=== PATIENT | male | born 1985 | race Caucasian/White ===

== ENCOUNTER 2025-05-14 11:16 | Outpatient (CLI) | payer BC, MEDICAID, SELFPAY ==
--- OUTSIDE RECORDS SUMMARY | 2025-01-26 17:30 | XMS_ITS ---
Author Organization [facility] Address [address] [place] [address] Care Team Providers Care Paper Products Supervisor Name Role Phone Migration, Provider Unavailable Unavailable Allergies Allergen (clinical drug ingredient) Drug/Non Drug Allergy documented on EMR Reaction Allergy Type Onset Date Status Penicillin Unknown Drug Allergy [facility] Conversion Encounter Medications Medication SIG (Take, Route, Frequency, Duration) Notes Start Date End Date Status Lisinopril-hydroCHLOROthiazi de 20-12.5 MG Tablet 1 tab(s) orally once a day; Duration: 30 days Active Triamcinolone Acetonide 0.1 % Cream 1 leatha applied topically 3 times a day; Duration: 14 days 10/03/2019 Active Famotidine 20 MG Tablet 1 tab(s) orally 2 times a day; Duration: 30 days 07/24/2019 Active dexAMETHasone 4 MG Tablet 1 tab(s) orall y 2 times a day; Duration: 7 day(s) 10/03/2019 Active Eucrisa 2 % Ointment 1 leatha applied topic ally 2 times a day; Duration: 30 days 10/03/2019 Active Encounters Encounter Location Date Provider Diagnosis [facility] [address] [place] [address] 01/26/2025 Provider Migration Plan Of Treatment Medication Medication Name Sig Start Date Stop Date Notes Triamcinolone Acetonide 0.1 % Cream 1 leatha applied topically 3 times a day; Duration: 14 days 10/03/2019 dexAMETHasone 4 MG Tablet 1 tab(s) orall y 2 times a day; Duration: 7 day(s) 10/03/2019 Eucrisa 2 % Ointment 1 leatha applied topic ally 2 times a day; Duration: 30 days 10/03/2019 Progress Notes * GAYAkash NDOB:1985 ( 39 yo M)Acc No.[id number]:01/26/2025 Patient: Akash Stern Provider: :1985 A ge:39 Y S ex:Male Date:01/26/2025 Address:[address] [place] [address] Subjective: * Chief Complaints: * M [facility] Conversion Encounter * Medications: T akingFamotidine 20 MG Tablet 1 tab(s) orally 2 times a day Lisinopril-hydroCHLOROthiazide 20-12.5 MG Tablet 1 tab(s) orally once a day Taking Famotidine 20 MG Tablet 1 tab(s) orally 2 times a day Taking Lisinopril-hydroCHLOROthiazide 20-12.5 MG Tablet 1 tab(s) orally once a day * Allergies: P enicillin Plan: * Treatment: * Electronic signature of Prov ider Migration on 05/15/2025 at 10:01 AM EDT Sign off status: Pending * Provider: Date: 01/26/2025 Generated for Vera littlejohn/Unruly/Messi on: 05/15/2025 10:01 AM EDT
[2025-05-14 15:54] LABS: Coronavirus 19, PCR Not Detected (NotDetected); Influenza A, PCR Not Detected (NotDetected); Influenza B, PCR Not Detected (NotDetected)
--- OUTSIDE RECORDS SUMMARY | 2025-05-15 10:01 | XMS_ITS | Clinical Summary ---
Author Organization [facility] Address [address] [place] [address] Care Team Providers Care Watch Engine Operator Name Role Phone Joel Adrianshikha Zabala APRN Primary Care Provider + Allergies Active Allergy Reactions Criticality Noted Date Comments Penicillins Hives,Unknown (See Comments) 2020 Medications ZyrTEC Allergy 10 MG tablet Take 1 tablet by mouth Daily. 4 Active Omeprazole 20 MG Tablet Delayed Release DispersibleIndi cations:Excessi ve daytime sleepiness Take 1 tablet by mouth Daily. 90 tablet 5 Active vitamin D (ERGOCALCIFEROL ) 1.25 MG (81738 UT) capsule capsuleIndicati ons:Vitamin D deficiency Take 1 capsule by mouth 1 (One) Time Per Week. 5 capsule 2 5 Active albuterol sulfate HFA 108 (90 Base) MCG/ACT inhalerIndicati ons:Shortness of breath Inhale 2 puffs Every 4 (Four) Hours As Needed for Wheezing or Shortness of Air. 18 g 11 5 Active citalopram (CeleXA) 20 MG tabletIndicatio ns:Excessive daytime sleepiness TAKE 1 TABLET BY MOUTH DAILY. 90 tablet 5 Active losartan (COZAAR) 50 MG tabletIndicatio ns:Excessive daytime sleepiness TAKE 1 TABLET BY MOUTH DAILY. 90 tablet 5 Active hydroCHLOROthia zide 12.5 MG tabletIndicatio ns:Excessive daytime sleepiness TAKE 1 TABLET BY MOUTH DAILY. 90 tablet 5 Active Active Problems Problem Noted Date Diagnosed Date Other fatigue 09/17/2024 Shortness of breath 09/17/2024 Epididymal cyst 12/23/2020 Immunizations Immunization Administration Dates Next Due MMR 11/29/1996 Td (TDVAX) 11/29/1996 Tdap 02/22/2021 Family History Medical History Relation Name Comments Cancer Father Prostate cancer Father Cancer Maternal Grandfather Cancer Mother Ovarian cancer Mother Skin cancer Mother Prostate cancer Paternal Grandfather Relation Name Status Comments Father Alive Maternal Grandfather Mother Alive Paternal Grandfather Social History Tobacco Use Types Packs/Day Years Used Date Smoking Tobacco: Never Passive Smoke Exposure: Never Smokeless Tobacco: Never Tobacco Cessation:Counseling Given: No Alcohol Use Standard Drinks/Week Comments Never 0 (1 standard drink = 0.6 oz pur e alcohol) PHQ-2 Answer Date Recorded Patient Health Questionnaire-2 Score 0 08/28/2024 Sex and Gender Information Value Date Recorded Sex Assigned at Not on file Legal Sex Male 4:26 PM EDT Gender Identity Not on file Sexual Orientation Not on file Last Filed Vital Signs Vital Sign Reading Time Taken Comments Blood Pressure 124/86 09/17/2024 12:59 PM EST Pulse 88 09/17/2024 12:59 PM EST Temperature 36.4 C (97.6 F) 09/17/2024 12:59 PM EST Respiratory Rate 17 03/01/2021 9:49 AM EDT Oxygen Saturation 98% 09/17/2024 12:59 PM EST Inhaled Oxygen Concentration - - Weight 107 kg (235 lb 3.2 oz) 09/17/2024 12:59 P M EST Height 177.8 cm (5' 10 ) 09/17/2024 12:59 PM EST Body Mass Index 33.75 09/17/2024 12:59 PM EST Plan of Treatment Health Maintenance Due Date Last Done Comments ANNUAL PHYSICAL 09/19/2020 HEPATITIS C SCREENING 09/19/2020 INFLUENZA VACCINE 03/22/2025 TDAP/TD VACCINES (3 - Td or Tdap) 02/22/2031 02/22/2021, 11/29/1996 Pneumococcal Vaccine 0-49 Aged Out No longer eligible based on patient's age to complete this topic Insurance [employer] Care Teams Watch Engine Operator Relationship Specialty Start Date End Date Adrian Maldonado, DWAYNE [address] [place] [address] PCP - General Nurse Practitioner 02/05/25
--- OUTSIDE RECORDS SUMMARY | 2025-05-15 10:01 | XMS_ITS | Referral Summary ---
Author Organization [facility] ([place], [place], [place], [place]) Address [address] [place] [address] Care Team Providers Care Poultry Process Worker Name Role Phone Adrian Maldonado APRN Primary Care Provider +1- [phone] Allergies Active Allergy Reactions Criticality Noted Date Comments Penicillin Hives High 01/01/2025 Medications losartan (COZAAR) 50 MG tabletIndicatio ns:HTN (hypertension) Take 1 tablet (50 mg total) by mouth daily. 90 tablet 01/01/2025 6 Active hydroCHLOROthia zide (HYDRODIURIL) 25 MG tabletIndicatio ns:HTN (hypertension) Take 0.5 tablets (12.5 mg total) by mouth daily. 90 tablet 01/01/2025 6 Active citalopram (CeleXA) 20 MG tabletIndicatio ns:Anxiety Take 1 tablet (20 mg total) by mouth daily Look-alike /Sound-alike medication . 30 tablet 01/01/2025 6 Active omeprazole (PriLOSEC) 20 MG capsuleIndicati ons:GERD (gastroesophage al reflux disease) Take 1 capsule (20 mg total) by mouth daily. 90 capsule 01/01/2025 6 Active semaglutide, weight loss, (Wegovy) 0.25 mg/0.5 mL syringe Inject 0.5 mLs (0.25 mg total) under the skin every 7 days. 2 mL 01/16/2025 Active Social History Tobacco Use Types Packs/Day Years Used Date Smoking Tobacco: Former Cigarettes 0.5 2.4 S tarted: 01/01/2023 Smokeless Tobacco: Never Tobacco Cessation:Counseling Given: Not Answered Alcohol Use Standard Drinks/Week Comments Not Currently 0 (1 standard drink = 0.6 oz pur e alcohol) Housing Stability Vital Sign Answer Benny e Recorded In the last 12 months, was t here a time when you were not able to pay the mortgage or rent on time? No 01/01/2025 Number of Times Moved in the Last Year Not on fi le 01/01/2025 At any time in the past 12 m [facility], were you homeless or living in a m[facility] (including now)? No 01/01/2025 Family and Community Support Answer Benny e Recorded Help with Day to Day Activities Not on file 09/26/2023 Feeling Lonely or Isolated Not on file 09/26 Educational Attainment Answer Date Kb rded Speak language other than Syrian at home Not on file 09/26/2023 Want help with school or training Not on file 09/26/2023 Substance Use Answer Date Recorded Used prescription meds for non-medical reasons N ot on file 09/26/2023 Used illegal drugs past 12 months Not on file 09/26/2023 Sex and Gender Information Value Date Recorded Sex Assigned at Not on file Legal Sex Male 9:45 AM CDT Gender Identity Not on file Sexual Orientation Not on file Last Filed Vital Signs Vital Sign Reading Time Taken Comments Blood Pressure 125/79 01/01/2025 11:23 AM EDT Pulse 84 01/01/2025 11:23 AM EDT Temperature 36.6 C (97.9 F) 01/01/2025 11:23 AM EDT Respiratory Rate 16 01/01/2025 11:23 AM EDT Oxygen Saturation 95% 01/01/2025 11:23 AM EDT Inhaled Oxygen Concentration - - Weight 104.8 kg (231 lb) 01/01/2025 11:23 AM EDT Height 177.8 cm (5' 10 ) 01/01/2025 11:23 AM EDT Body Mass Index 33.15 01/01/2025 11:23 AM EDT Plan of Treatment Not on file Procedures Procedure Name Priority Date/Time Associated Diagnosis Comments LIPID PANEL Routine 01/08/2025 9:32 AM EDT Healthcare maintenance from Last 3 Months or Most Recently Relevant to Health Maintenance Results * (ABNORMAL) Lipid panel (01/08/2025 9:32 AM EDT) Cholesterol, Total 170 100 - 199 mg/dL [facility] Triglycerides 115 0 - 149 mg/dL [facility] HDL Cholesterol 28(L) >39 mg/dL [facility] VLDL Cholesterol Rudi 21 5 - 40 mg/dL [facility] LDL Calculated 121(H) 0 - 99 mg/dL [facility] Blood 01/08/2025 9:32 AM EDT 01/08/2025 Narrative [facility] - 01/09/2025 4:08 PM EDT Performed at: - [address] [id number] Analyst Microbiology Lab: Paul Jackson PhD, Phone: [phone] Adrian Maldonado PROCUREMENT PROFESSIONAL LOGISTICS LAB BLOOD ORDERABLES Final Result Performing Organization Address City/State/[facility] Co de Phone Number [facility] from Last 3 Months or Most Recently Relevant to Health Maintenance [facility] Care Teams Poultry Process Worker Relationship Specialty Start Date End Date Adrian Maldonado, PROCUREMENT PROFESSIONAL LOGISTICS [address] [place] [address] PCP - General Family Medicine 01/01/25
--- OUTSIDE RECORDS SUMMARY | 2025-05-15 10:01 | XMS_ITS | Patient Health Record ---
Author Organization [facility] Address [address] [place] [address] Care Team Providers Care Mri Assistant Name Role Phone Migration, Provider Unavailable Unavailable Allergies Allergen (clinical drug ingredient) Drug/Non Drug Allergy documented on EMR Reaction Allergy Type Onset Date Status Penicillin Unknown Drug Allergy Active Reason For Referral No Information Medications Medication SIG (Take, Route, Frequency, Duration) [...] a day; Duration: 30 days 10/03/2019 Active Social History Social History Social History Social Info Question Answer Notes Tobacco Use Current smoking status: Never smoked Additional Details Category Social Info Options Details Social History Occupational exposure no Travel outside [place] no Alcohol no Sexually active yes Drug use no Exercise yes Home smoke detector use: yes Caffeine no Marital Status Children 3 Pets no Taoism yes Problems Problem Type SNOMED Code ICD Code Onset Dates Problem Status W/U Status Risk Notes Problem Essential hypertension (65121272) Essential (primary) hypertension (I10) Active confirmed Problem Gastro-esophagea l reflux disease without esophagitis (371905395) Gastro-esophagea l reflux disease without esophagitis (K21.9) Active confirmed Problem Epidermal cyst (707287741) Epidermal cyst (L72.0) Active confirmed Encounters Encounter Location Date Provider Diagnosis [facility] [address] [place] [address] 01/26/2025 Provider Migration Plan Of Treatment No Information Insurance Providers Payer Name Payer Address Payer Phone Subscriber Number Group Number Insured Name Patient Relationship to Insured Coverage Start Date Coverage End Date Passport by [id number] (Medicaid) [address] [address] [place] [id number] Akash Moreland Self - patient is the insured Medical (General) History Medical History History ICD Code Essential (primary) hypertension Essential (primary) hypertension I10 Gastro-esophageal reflux disease without esophagitis K21.9 Surgical History Surgery Date(Month/Year)
--- OUTSIDE RECORDS SUMMARY | 2025-05-15 10:01 | XMS_ITS | Clinical Summary ---
Author Organization [facility] ([place], [place], [place], [place]) Address [address] [place] [address] Care Team Providers Care Raise Drill Operator Name Role Phone Adrian Maldonado APRN Primary Care Provider +1- [phone] Allergies Active Allergy Reactions Criticality Noted Date [...] any time in the past 12 m [facility], were you homeless or living in a residential (including now)? No 01/01/2025 Family and Community Support Answer Benny e Recorded Help with Day to Day Activities Not on file 09/26/2023 Feeling Lonely or Isolated Not on file 09/26 Educational Attainment Answer Date Kb rded Speak language other than Lao at home Not on file 09/26/2023 Want [...] 01/01/2025 11:23 AM EDT Plan of Treatment Health Maintenance Due Date Last Done Comments HIV Screening 2000 Hepatitis C Screening 2003 COVID-19 VACCINE (2024-2 6 season) 2025 10/13/2020, 09/05/2020 Influenza Vaccine (#1) 2025 Depression Screening (12+) 01/01/2026 01/01/2025 Tobacco Cessation Counseling and Screening (12+) 01/01/2026 01/01/2025 Lipid Panel 01/09/2028 01/08/2025, 08/28/2024 DTAP/TDAP/TD VACCINES (3 - T d or Tdap) 02/22/2031 02/22/2021, 11/29/1996 Pneumococcal Vaccine: 0-49 Years Aged Out No longer eligible b ased on patient's age to complete this topic Procedures Procedure Name Priority Date/Time Associated Diagnosis [...] - 01/09/2025 4:08 PM EDT Performed at: 01 - [facility] [id number] Cord Tire Builder: Paul Jackson PhD, Phone: [phone] us Adrian Maldonado GELATIN DYNAMITE PACKING OPERATOR LAB BLOOD ORDERABLES Final Result [facility] from Last 3 Months or Most Recently Relevant to Health Maintenance Insurance PASSPORT [facility] [address] [place] Care Teams Raise Drill Operator Relationship Specialty Start Date End Date Adrian Maldonado, GELATIN DYNAMITE PACKING OPERATOR [address] [place] [id number] PCP - General Family Medicine 01/01/25
== END 2025-05-14 23:59 ==
LOC: LAB.DROPOF 05-15 09:54
PROVIDERS: PCP Nurse Practitioner; Visit Provider Nurse Practitioner
DX: J06.9 Acute upper respiratory infection, unspecified (principal)
CPT/HCPCS: 87631